=== PATIENT | female | born 1965 | race Caucasian/White ===

== ENCOUNTER 2022-12-20 10:44 | Emergency (ER) | payer SELFPAY ==
[~2022-12-20] VITALS: Ht 162.6 cm; Wt 116.1 kg
[2022-12-20 10:53] VITALS: BP 146/79
[2022-12-20] MEDS ORDERED: KETOROLAC 30 MG/ML VIAL IM ONE (12:10)
[2022-12-20] MEDS ORDERED: DICL100G5 TP (12:19)
[2022-12-20] MEDS ORDERED: IBUP-2213 PO (12:19)
[2022-12-20] MEDS ORDERED: NYSTRC TP (12:19)
[2022-12-20 13:00] VITALS: BP 146/79
--- NOTE | 2022-12-20 13:01 | NUR ---
Patient discharged with v/s stable. Written and verbal after care instructions given and explained. Patient alert, oriented and verbalized understanding of instructions. Ambulatory with steady gait. All questions addressed prior to discharge. ID band removed. Patient advised to follow up with PMD. Rx of DICLOFENAC, IBUPROFEN, NYSTATIN (SENT) given. Patient educated on indication of medication including possible reaction and side effects. Opportunity to ask questions provided and answered. WORK NOTE GIVEN
== END 2022-12-20 13:00 | disposition home or self-care (01) ==
LOC: MED 10:44
DX: L30.8 Other specified dermatitis (principal); B37.2 Candidiasis of skin and nail; G89.29 Other chronic pain; M25.561 Pain in right knee; M25.562 Pain in left knee
CPT/HCPCS: 96372; 99283; J1885

== ENCOUNTER 2023-01-10 19:37 | Emergency (ER) | payer SELFPAY ==
[~2023-01-10] VITALS: Ht 152.4 cm; Wt 114.8 kg
[~2023-01-10 19:37] MED LIST: DICL100G5 TP; IBUP-2213 PO; NYSTRC TP
[2023-01-10 20:39] VITALS: BP 162/91
[2023-01-10] MEDS ORDERED: KETOROLAC 60 MG/2 ML VIAL IM ONE (23:10)
[2023-01-10 23:27] LABS: BASOPHILS % (AUTO) 0.5 % (0.0-2.0); EOSINOPHILS # (AUTO) 0.3 K/uL (0-0.4); EOSINOPHILS % (AUTO) 2.8 % (0.0-4.0); HEMATOCRIT 40.5 % (36-48); HEMOGLOBIN 13.7 g/dL (12.0-16.0); LYMPHOCYTES # (AUTO) 2.9 K/uL (2.5-16.5); LYMPHOCYTES % (AUTO) 32.1 % (20.5-51.1); MEAN CORPUSCULAR HEMOGLOBIN 32 pg (27-31); MEAN CORPUSCULAR HGB CONC 34 g/dL (33-37); MONOCYTES # (AUTO) 1.2 K/uL (0.8-1.0); NEUTROPHILS # (AUTO) 4.6 K/uL (1.8-7.7); NEUTROPHILS % (AUTO) 51.6 % (42.2-75.2); PLATELET COUNT (AUTO) 313 K/uL (140-450); RED BLOOD CELL COUNT(AUTO) 4.36 MIL/uL (4.20-5.40); RED CELL DISTRIBUTION WIDTH 13.2 % (11.6-13.7); WHITE BLOOD COUNT (AUTO) 8.9 K/uL (4.8-10.8)
[2023-01-10 23:54] LABS: ALBUMIN 3.6 g/dL (3.4-5.0); ANION GAP 12.1 (8-16); ASPARTATE AMINOTRANSFERASE 47 U/L (15-37); CARBON DIOXIDE 27.9 mmol/L (21-32); CHLORIDE 103 mmol/L (98-107); CREATININE 0.8 mg/dL (0.6-1.3); GFR ARICAN-AMERICAN 96 mL/min (>90); GLUCOSE 118 mg/dL (74-106); SODIUM SERUM 139 mmol/L (136-145); TOTAL BILIRUBIN 0.4 mg/dL (0.0-1.0); UREA NITROGEN, BLOOD 9 mg/dL (7-18)
[2023-01-11] MEDS ORDERED: IBUP-2213 PO (00:21)
[2023-01-11] MEDS ORDERED: TRAM50TA3 PO (00:21)
[2023-01-11] MEDS ORDERED: ONDA-188 PO (00:21)
[2023-01-11] MEDS ORDERED: KETOROLAC 60 MG/2 ML VIAL IM ONE (01:04)
--- NOTE | 2023-01-11 01:30 | NUR ---
Patient discharged with v/s stable. Written and verbal after care instructions given and explained. Patient alert, oriented and verbalized understanding of instructions. Ambulatory with steady gait. All questions addressed prior to discharge. ID band removed. Patient advised to follow up with PMD. Rx of ZOFRAN, TRAMADOL, MOTRIN given. Patient educated on indication of medication including possible reaction and side effects. Opportunity to ask questions provided and answered.
== END 2023-01-11 01:30 | disposition home or self-care (01) ==
LOC: MED 19:37
DX: R51.9 Headache, unspecified (principal); Z79.899 Other long term (current) drug therapy
CPT/HCPCS: 36415; 80053; 84484; 85025; 96372; 99283; J1885

== ENCOUNTER 2023-09-24 08:50 | Emergency (ER) | payer MEDICAID ==
[~2023-09-24] VITALS: Ht 162.6 cm; Wt 102.1 kg
[~2023-09-24 08:50] MED LIST changes: +DICL100G32 TP; -DICL100G5 TP; +ONDA-188 PO; +TRAM50TA3 PO
[2023-09-24 08:57] VITALS: BP 111/66; PULSE 120; RESP 20; TEMP 97.2; O2SAT 0
[2023-09-24 09:00] VITALS: O2SAT 98
[2023-09-24] MEDS ORDERED: NACL 0.9% 2,000 ML IV ONE (09:10)
[2023-09-24] MEDS ORDERED: ONDANSETRON 4 MG/2 ML VIAL IVP ONE ×2 (09:35→20:25)
[2023-09-24] MEDS ORDERED: KETOROLAC 30 MG/ML VIAL IVP ONE (09:35)
[2023-09-24] MEDS ORDERED: ALUMINUM HYD/MAG/SIMETHICONE 30 ML UDC PO ONE (09:35)
[2023-09-24] MEDS ORDERED: ACETAMINOPHEN EXTRA STRENGTH 500 MG TAB PO ONE (09:35)
[2023-09-24] MEDS ORDERED: FAMOTIDINE 20 MG TAB PO ONE (09:35)
[2023-09-24 09:42] LABS: APPEARANCE,URINE CLEAR (CLEAR); BILIRUBIN,URINE NEGATIVE (NEGATIVE); BLOOD, URINE NEGATIVE (NEGATIVE); COLOR,URINE YELLOW (YELLOW); LEUKOCYTE ESTERASE ,URINE NEGATIVE (NEGATIVE); NITRITE, URINE NEGATIVE (NEGATIVE); PH,URINE 7.5 (5.0-9.0); PROTEIN,URINE NEGATIVE (NEGATIVE); UGLUCOSE NEGATIVE (NEGATIVE); UROBILINOGEN,URINE 0.2 EU/dL (0.2 - 1)
[2023-09-24 09:46] LABS: BASOPHILS % (AUTO) 0.2 % (0.0-2.0); EOSINOPHILS # (AUTO) 0.1 K/uL (0-0.4); EOSINOPHILS % (AUTO) 0.9 % (0.0-4.0); HEMATOCRIT 43.4 % (36-48); HEMOGLOBIN 14.9 g/dL (12.0-16.0); LYMPHOCYTES # (AUTO) 0.8 K/uL (2.5-16.5); LYMPHOCYTES % (AUTO) 9.2 % (20.5-51.1); MEAN CORPUSCULAR HEMOGLOBIN 32 pg (27-31); MEAN CORPUSCULAR HGB CONC 34 g/dL (33-37); MEAN CORPUSCULAR VOLUME 91.7 fL (80-94); MONOCYTES # (AUTO) 0.5 K/uL (0.8-1.0); MONOCYTES % (AUTO) 6.1 % (1.7-9.3); NEUTROPHILS % (AUTO) 83.6 % (42.2-75.2); PLATELET COUNT (AUTO) 303 K/uL (140-450); RED BLOOD CELL COUNT(AUTO) 4.73 MIL/uL (4.20-5.40); RED CELL DISTRIBUTION WIDTH 13.5 % (11.6-13.7); WHITE BLOOD COUNT (AUTO) 8.3 K/uL (4.8-10.8)
[2023-09-24 10:01] LABS: ANION GAP 12.4 (8-16); CALCIUM 8.7 mg/dL (8.5-10.1); CARBON DIOXIDE 30.6 mmol/L (21-32); CREATININE 1.2 mg/dL (0.6-1.3)
[2023-09-24 10:05] LABS: ALBUMIN 3.2 g/dL (3.4-5.0); BILIRUBIN,DIRECT 0.1 mg/dL (0.0-0.3); TOTAL BILIRUBIN 0.7 mg/dL (0.0-1.0); TOTAL PROTEIN, SERUM 8.5 g/dL (6.4-8.2)
[2023-09-24 10:20] LABS: FLU A ANTIGEN negative (NEGATIVE); FLU B ANTIGEN NEGATIVE (NEGATIVE)
[2023-09-24] MEDS ORDERED: POTASSIUM CHLORIDE 10 MEQ TABER PO ONE (10:30)
[2023-09-24] MEDS ORDERED: NACL 0.9% 1,000 ML IV ONE (12:00)
[2023-09-24 19:33] VITALS: O2SAT 0
[2023-09-24 19:49] VITALS: TEMP 98.3
[2023-09-24] MEDS ORDERED: ALBU0.0912 IH (20:53)
[2023-09-24] MEDS ORDERED: ONDA-188 SL (20:53)
[2023-09-24 21:09] VITALS: BP 116/89; PULSE 99; RESP 19; O2SAT 98
== END 2023-09-24 21:09 | disposition home or self-care (01) ==
LOC: MED 08:50
DX: K52.9 Noninfective gastroenteritis and colitis, unspecified (principal); R06.02 Shortness of breath; Z20.822 Contact with and (suspected) exposure to COVID-19; R00.0 Tachycardia, unspecified; Z79.899 Other long term (current) drug therapy; Z79.1 Long term (current) use of non-steroidal anti-inflammatories (NSAID)
CPT/HCPCS: 36415; 71045; 71275; 80048; 80076; 81003; 83690; 84484; 85025; 85379; 87426; 87804; 93005; 96361; 96374; 96375; 96376; 99285; J1885; J2405; J7030; Q0092; Q9967

== ENCOUNTER 2024-06-26 10:41 | Emergency (ER) | payer MEDICAID ==
[~2024-06-26] VITALS: Ht 162.6 cm; Wt 111.1 kg
[~2024-06-26 10:41] MED LIST changes: +ALBU0.0912 IH; +ONDA-188 SL
[2024-06-26 10:47] VITALS: BP 144/76; PULSE 99; RESP 16; TEMP 98.3; O2SAT 95
[2024-06-26 11:55] LABS: APPEARANCE,URINE HAZY (CLEAR); BILIRUBIN,URINE NEGATIVE (NEGATIVE); BLOOD, URINE TRACE-I (NEGATIVE); COLOR,URINE YELLOW (YELLOW); LEUKOCYTE ESTERASE ,URINE 3+ (NEGATIVE); NITRITE, URINE POSITIVE (NEGATIVE); PH,URINE 7.5 (5.0-9.0); PROTEIN,URINE TRACE (NEGATIVE); UGLUCOSE NEGATIVE (NEGATIVE)
[2024-06-26 11:58] LABS: BACTERIA,URINE 1+ /HPF (None Seen); SQUAMOUS EPITHELIAL CELL,UR 20-50 /LPF (0-3 (FEW))
[2024-06-26 12:00] LABS: WBC,URINE 20-60 /HPF (0-5)
[2024-06-26 12:01] LABS: RBC,URINE 0-5 /HPF (0-5)
[2024-06-26] MEDS ORDERED: LIDOCAINE MPF 1% 5 ML ONE (12:20)
[2024-06-26] MEDS ORDERED: cefTRIAXone 1,000 MG VIAL ONE (12:20)
[2024-06-26] MEDS: cefTRIAXone 1,000 MG in LIDOCAINE MPF 1% 2.1 ML IM ONE (12:29)
[2024-06-26] MEDS ORDERED: PYR100 PO (12:39)
[2024-06-26] MEDS ORDERED: IBUP-2213 PO (12:39)
[2024-06-26] MEDS ORDERED: CEPH-588 PO (12:39)
[2024-06-28] MEDS ORDERED: CIPR500T4 PO (16:33)
== END 2024-06-26 12:43 | disposition home or self-care (01) ==
LOC: MED 10:41
DX: N39.0 Urinary tract infection, site not specified (principal); Z79.899 Other long term (current) drug therapy; I10 Essential (primary) hypertension
CPT/HCPCS: 81001; 82948; 87086; 87186; 96372; 99283; J0696; J2003